=== PATIENT | male | born 1985 ===

== ENCOUNTER 2021-12-28 08:49 | Emergency (ER) | payer BC ==
[2021-12-28] MEDS ORDERED: ASPIRIN 325 MG TAB PO ONE ×2 (09:09→16:00)
--- NOTE | 2021-12-28 09:51 | XRay Report ---
CHEST 2 VIEWS INDICATION / CLINICAL INFORMATION: Palpitations. Chest pain and dizziness starting this morning. COMPARISON: None available. FINDINGS: SUPPORT DEVICES: None. HEART / MEDIASTINUM: The heart size and pulmonary vasculature are normal. The aorta is normal in michele maryam. LUNGS / PLEURA: No significant pulmonary or pleural abnormality. No pneumothorax. ADDITIONAL FINDINGS: No significant additional findings. IMPRESSION: No acute findings. Signer Name: Marvin Gamino MD Signed: 12/28/2021 9:46 AM Workstation Name: [employer]
[2021-12-28 10:35] LABS: Basophils % (Auto) 0.2 % (0.0-1.8); Eosinophils # (Auto) 0.1 K/mm3 (0.0-0.4); Eosinophils % (Auto) 0.8 % (0.0-4.3); Hemoglobin 16.9 gm/dl (11.8-15.2); Lymphocytes # (Auto) 1.7 K/mm3 (1.2-5.4); Lymphocytes % (Auto) 16.8 % (13.4-35.0); Mean Corpuscular HGB Conc 35 % (32-34); Mean Corpuscular Volume 90 fl (84-94); Monocytes # (Auto) 0.6 K/mm3 (0.0-0.8); Platelet Count 230 K/mm3 (140-440); Red Blood Count 5.42 M/mm3 (3.65-5.03); Red Cell Distribution Width 12.8 % (13.2-15.2)
[2021-12-28 10:53] LABS: Alanine Aminotransferase 27 units/L (7-56); Albumin 4.8 g/dL (3.9-5); BUN/Creatinine Ratio 15; Blood Urea Nitrogen 16 mg/dL (9-20); Calcium 9.8 mg/dL (8.4-10.2); Hemolysis Index 9
--- NOTE | 2021-12-28 14:16 | Emergency Department Report ---
ED Palpitations HPI - General Chief Complaint: Arrhythmia/Palpitations Stated Complaint: HEART BEATING FAST Time Seen by Provider: 12/28/21 13:55 Source: patient Mode of arrival: Ambulatory Limitations: No Limitations - History of Present Illness Initial Comments: 36-year-old male no significant past medical history reports to the ER after experiencing chest pain with palpitations today as well as associated symptoms of dizziness, confusion, sweaty hands and generalized weakness. Patient was at work around 8 AM and symptoms started. Patient left work and drove himself to the ER. Patient reports his chest pain is a 4 out of 10 and is still currently active. Patient reports taking no medications. Patient reports in 2016 after having right hand cyst removal, he reports that during surgery he was informed he had new arrhythmia and was sent to cardiology patient was placed on heart monitor for about 1 week. And was informed to take aspirin 81 mg chewable once a day for a few months. 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 No other acute symptoms reported patient denies shortness of breath headache and no active dizziness at this moment. - Related Data Allergies Allergy/AdvReac Type Severity Reaction Status Date / Time No Known Allergies Allergy Verified 12/28/21 09:04 ED Review of Systems ROS: Stated complaint: HEART BEATING FAST Other details as noted in HPI Constitutional: weakness. denies: chills, fever Eyes: denies: eye pain, eye discharge, vision change ENT: denies: ear pain, throat pain Respiratory: denies: cough, shortness of breath, wheezing Cardiovascular: chest pain, palpitations. denies: dyspnea on exertion, syncope Endocrine: no symptoms reported Gastrointestinal: denies: abdominal pain, nausea, diarrhea Genitourinary: denies: urgency, dysuria Musculoskeletal: denies: back pain, joint swelling, arthralgia Skin: denies: rash, lesions Neurological: other (Dizziness). denies: headache, weakness, paresthesias Psychiatric: denies: anxiety, depression Hematological/Lymphatic: denies: easy bleeding, easy bruising ED Past Medical Hx - Past Medical History Previous Medical History?: No ED Physical Exam - General Limitations: No Limitations General appearance: alert, in no apparent distress - Head Head exam: Present: atraumatic, normocephalic - Eye Eye exam: Present: normal appearance - ENT ENT exam: Present: mucous membranes moist - Neck Neck exam: Present: normal inspection - Respiratory Respiratory exam: Present: normal lung sounds bilaterally. Absent: respiratory distress, chest wall tenderness - Cardiovascular Cardiovascular Exam: Present: regular rate, normal rhythm, normal heart sounds. Absent: systolic murmur, diastolic murmur, rubs, gallop - GI/Abdominal GI/Abdominal exam: Present: soft, normal bowel sounds. Absent: distended, tenderness, guarding - Rectal Rectal exam: Present: deferred - Extremities Exam Extremities exam: Present: normal inspection - Back Exam Back exam: Present: normal inspection - Neurological Exam Neurological exam: Present: alert, altered, oriented X3, normal gait - Psychiatric Psychiatric exam: Present: normal affect, normal mood - Skin Skin exam: Present: warm, dry, intact, normal color. Absent: rash ED Course Vital Signs 12/28/21 12/28/21 12/28/21 09:05 13:19 13:30 Temperature 97.7 F Pulse Rate 109 H 79 Respiratory 16 17 Rate Blood Pressure 154/100 [Left] O2 Sat by Pulse 100 100 100 Oximetry 12/28/21 12/28/21 12/28/21 13:34 13:39 13:46 Temperature Pulse Rate 87 82 Respiratory 15 19 Rate Blood Pressure 133/80 [Left] O2 Sat by Pulse 98 97 98 Oximetry 12/28/21 12/28/21 12/28/21 14:00 14:52 17:26 Temperature Pulse Rate 91 H Respiratory 15 21 Rate Blood Pressure 115/71 [Left] O2 Sat by Pulse 99 94 98 Oximetry ED Medical Decision Making - Lab Data Result diagrams: 12/28/21 09:55 12/28/21 09:55 - Medical Decision Making 36-year-old male with no significant past medical history reports to the ER with complaints of chest pain and palpitation with dizziness, generalized weakness. Denies shortness of breath, denies headache, no other acute symptoms reported. Chest pain is 4 out of 10. No acute findings on physical exam. Patient has received aspirin 325 in ER. Initial EKG shows no STEMI new onset of right bundle branch block. Chest x-ray with no acute process noted. Troponin is negative. CBCno acute process noted. CMPno acute process noted. Repeat EKG ordered. Initial BP was 154/100 with a heart rate of 109. On assessment of patient patient is new BP is 125/76 heart rate of 84 respirate 16 O2 saturation 100%. Patient reports feeling better since being here in the ER at [facility]. Repeat troponin is negative, repeat EKG with no acute changes from initial EKG. Patient continues to report feeling better. Patient stable for discharge home. Patient will start aspirin 81 mg chewable tablets once daily. Until he is seen by primary care provider or tobacco scrap sifter. Patient has been given referral to primary care services as well as cardiology through [facility]. Patient agrees with plan of care and verbalizes understanding. Patient vital sign and provider assessment was 119/72 blood pressure, heart rate 74, 16 respiratory, 99% room air. Vital signs are stable. Critical care attestation.: If time is entered above; I have spent that time in minutes in the direct care of this critically ill patient, excluding procedure time. ED Disposition Clinical Impression: Chest pain in adult, Acute angina Disposition: 01 HOME / SELF CARE / HOMELESS Is pt being admited?: No Does the pt Need Aspirin: No (Patient will be started on daily aspirin 81 mg once a day until seen by primary care or tobacco scrap sifter.) Condition: Stable Instructions: Nonspecific Chest Pain, Adult, Angina, [id number] Referrals: MARLYN MELISSA MD [Primary Care Provider] - 3-5 Days YVONNE CHAPPELL MD [Staff Physician] - 3-5 Days STEFANI BLOUNT MD [Staff Physician] - 3-5 Days MIRYAM BLOUNT MD [Referring] - 3-5 Days Forms: Work/School Release Form(ED) Time of Disposition: 17:38
[2021-12-28] MEDS ORDERED: NITROGLYCERIN 0.4 MG TAB SUBL SL ONE (14:25)
[2021-12-28 17:27] VITALS: BP 115/71
--- NOTE | 2021-12-29 13:17 | Electrocardiograph Report ---
[facility] Test Date: 2021-12-28 Test Time: 09:16:11 Pat Name: DE IBARRA Department: Room: Gender: M Integrity Analyst: TYSON : 1985 Requested By: ED DOC Order Number: [id number] Reading MD: Rey Yadav Measurements Intervals [place] Rate: 100 P: 26 [place]: 188 QRS: -169 QRSD: 139 T: 9 QT: 381 QTc: 490 Interpretive Statements Sinus tachycardia Right bundle branch block ST elevation, consider lateral injury,correlate clinically. Prolonged QT interval No previous ECG available for comparison Electronically Signed On 12-29-2021 13:16:48 EDT by Rey Yadav
--- NOTE | 2021-12-29 13:21 | Electrocardiograph Report ---
[facility] Test Date: 2021-12-28 Test Time: 15:12:54 Pat Name: DE IBARRA Department: Room: Gender: M Machine Packer: VINAY : 1985 Requested By: CARL ROGERS Order Number: [id number] Reading MD: Rey Yadav Measurements Intervals [place] Rate: 84 P: 38 [place]: 178 QRS: 179 QRSD: 133 T: 7 QT: 405 QTc: 480 Interpretive Statements Sinus rhythm RBBB and LPFB ST elev, probable normal early repol pattern Compared to ECG 12/28/2021 09:16:11 Sinus tachycardia no longer present Electronically Signed On 12-29-2021 13:20:32 EDT by Rey Yadav
== END 2021-12-28 17:58 | disposition home or self-care (01) ==
LOC: ED 08:49
DX: R07.9 Chest pain, unspecified (principal); I20.9 Angina pectoris, unspecified
CPT/HCPCS: 36415; 71046; 80053; 84484; 85025; 93005; 99284